=== PATIENT | female | born 1970 | race Caucasian/White ===

== ENCOUNTER 2020-03-17 07:00 | Day surgery (SDC) | payer OTHER ==
--- NOTE | 2020-03-15 15:11 | NUR ---
B[place]LETT NOTE: T97.9 P68 O2SAT 97% BP 102/60
[2020-03-15 15:45] LABS: HEMATOCRIT 41.8 % (36.0-48.0); HEMOGLOBIN 13.9 g/dL (12-16); MCH 31.2 pg (26.0-34.0); MCHC 33.3 g/dL (31.0-37.0); MCV 93.9 fL (80.0-100.0); MEAN PLATELET VOLUME 8.2 fL (7.4-10.4); RBC 4.45 10x6/uL (4.00-5.40); RDW 12.1 % (11.5-14.5); WBC 7.6 10x3/uL (4.8-10.8)
[~2020-03-17] VITALS: Ht 154.9 cm; Wt 66.2 kg
[~2020-03-17 07:00] MED LIST: ALBUTEROL SULF8.5 GM INH; CO Q-10100 MG PO; GABAPENTIN100 MG PO; IMITREX100 MG PO; KLONOPIN0.5 MG PO; LIPITOR40 MG PO; NAPROSYN500 MG PO; SEROQUEL50 MG PO; TRELEGY ELLIPT1 EACH INH; ULTRAM50 MG PO; ZANAFLEX4 MG PO; ZOLOFT100 MG PO
[2020-03-17 07:34] VITALS: BP 101/61; Ht 154.9 cm; Wt 66.2 kg
--- NOTE | 2020-03-17 07:51 | NUR ---
POSITIVE FOR SUICIDE ASSESSMENT, SEES A COUNSELOR. REFUSES FURTHER ASSESSMENT AT THIS TIME.
[2020-03-17] MEDS ORDERED: MEDROL DOSE PACK4 MG PO (09:12)
[2020-03-17] MEDS ORDERED: HYDROCODON-ACE1 EA10 PO (09:12)
--- NOTE | 2020-03-17 10:37 | NUR ---
NO NUMBNESS OR TINGLING--EQUAL STENGHT BOTH LOWER EXTREMETIES
--- NOTE | 2020-03-17 13:01 | NUR ---
1130 MEDICATED FOR PAIN 03/11 1200 IV REMOVED AND DRESSING APPLIED 1200 VOIDED IN BATHROOM. ASSISTED WITH GETTING DRESSED. 1130 INSTRUCTIONS GVEN AND D/C HOME PAIN LEVEL A 11/09.
--- NOTE | 2020-03-25 11:01 | OP ---
PATIENT NAME: EMA [place] MEDICAL RECORD: [id number] :66 LOCATION:D.OPS ADMISSION DATE: SURGEON: YA SHAW MD DATE OF OPERATION: 03/17/2020 DATE OF SERVICE: 03/17/2020 PREOPERATIVE DIAGNOSES: Lumbar spinal stenosis with foraminal stenosis L4-L5 right with left L4-L5 foraminal stenosis. PROCEDURE: Lumbar laminectomy, medial facetectomy, and foraminotomy L4-L5 on the right with sublaminar decompression of left L4-L5 with METRx retractor. SURGEON: Ya Shaw MD ACCOUNT EXECUTIVE METALWORKING: Edwin Buenrostro APN DESCRIPTION AND TECHNIQUE: After induction of general endotracheal anesthesia, the patient was rolled prone on a Baljinder frame. Lumbar spine was prepped and draped in the usual sterile fashion. Fluoroscopic x-ray and spinal needle localized the L4-L5 interspace on the right side. After infiltration of 1:100,000 epinephrine and 1% lidocaine, a stab incision was created with a #11 blade. Series of dilators were used to advance a METRx retractor at the L4-L5 interspace on the right side that was confirmed with fluoroscopic x-ray. A microscope and Midas Fransico drill were used to perform a laminectomy, medial facetectomy, and foraminotomy at L4-L5 on the right. Hypertrophied ligamentum flavum was removed with Cloward rongeurs. The spinous process of L4 was undermined with the Midas-Fransico drill. The retractor was tilted to the opposite side of the canal. Hypertrophied ligamentum flavum was made on the left side between L4-L5. A foraminotomy was carried out with Cloward rongeurs at L4-L5 on the left. The disk space was inspected on the right side and found to cause no significant nerve root compression. Meticulous hemostasis was maintained throughout the wound. Wound was irrigated with copious amounts of Ancef irrigant solution. Retractors were removed. The fascia was closed with 2-0 Vicryl suture, the subdermal layer was closed with 3-0 Vicryl suture. The skin was closed with ricarda. A sterile dressing was applied to the wound. The patient was awakened in good condition and taken to recovery. All counts were reported as correct. Estimated blood loss was minimal. Throughout the procedure, Edwin Buenrostro provided retraction and hemostasis as well as assistance with mechanical portions of the procedure. TRANSINT:[id number] Voice Confirmation ID: [id number] DOCUMENT ID: [id number] YA SHAW MD at 1101 CC: [id number] DICTATION DATE: 03/24/20 1434 VENDOR QUALITY SUPERVISOR: 03/24/20 1520 [facility] 03/17/20 [facility] [address] [id number]
== END 2020-03-17 11:30 | disposition home or self-care (01) ==
LOC: D.OPS 07:00 → D.PAN 09:00 → D.OPS 09:00 → D.PAN 12:00 → D.OPS 13:15 → D.PAN 13:15
PROVIDERS: Anesthesiology; ATTEND Neurological Surgery
DX: M54.16 Radiculopathy, lumbar region (principal); M48.061 Spinal stenosis, lumbar region without neurogenic claudication; J44.9 Chronic obstructive pulmonary disease, unspecified; K21.9 Gastro-esophageal reflux disease without esophagitis